=== PATIENT | male | born 1960 | race Caucasian/White ===

== ENCOUNTER 2019-06-10 12:58 | Emergency (ER) | payer OTHER ==
[~2019-06-10] VITALS: Ht 177.8 cm; Wt 68.0 kg
[2019-06-10] MEDS ORDERED: ATORVASTATIN CA10 MG ORAL (13:00)
[2019-06-10] MEDS ORDERED: Ketorolac 30mg Inj IV ONE (13:00)
[2019-06-10 13:05] VITALS: BP 106/65
--- NOTE | 2019-06-10 13:05 | NUR ---
ED Nurse Note: PT BROUGHT IN BY RA Cruz FROM PHYSICAL THERAPY DUE TO SYNCOPE EPISODE TODAY WITNESSED BY CLINIC STAFF. PT C/O LEFT ARM PAIN AND STATES HE MIGHT HAD LANDED ON IT WHEN HE LOC. NO APPARENT HEAD TRAUMA NOTED. AAO X4, FOLLOWS COMMANDS AND DENIES CP OR DIZZINESS. FRIEND AT THE BED SIDE.
--- NOTE | 2019-06-10 13:28 | Emergency Room Report ---
History of Present Illness General Chief Complaint: Syncope Source: Patient Present Illness HPI She presents post syncopal episode having procedure done on his left leg. Syncope in the past. This has happened exposure to blood products. The procedure made him feel dizzy. He was standing. He also lost his vision and caught his left arm on a pole when he was falling. He has pain in his left arm at this time. He woke up very soon after falling. Denies any head trauma. He tried to discourage paramedics from transporting him. Then they performed a blood glucose test and he became near syncopal a second time. EKG in the field was done without injury. Blood glucose was normal. The pain in his left arm is rated 5/10 and aching. No numbness. Patient has a history of low heart rate and low blood pressure. Otherwise he is healthy. No fevers, chills, sore throat, chest pain, palpitations, nausea, vomiting, diarrhea, dysuria, abdominal pain, shortness of breath, joint pain, rashes, depression, anxiety, headache. Allergies: Coded Allergies: PENICILLINS (Verified Allergy, Unknown, 06/10/19) Patient History Past Medical History: see triage record Social History: Denies: smoking, alcohol use, drug use Social History Narrative Reviewed Nursing Documentation: PMH: Agreed; PSxH: Agreed Nursing Documentation-PMH Past Medical History: No History, Except For Hx Cardiac Problems: No - high cholesterol Review of Systems All Other Systems: negative except mentioned in HPI Physical Exam Vital Signs Date Time Temp Pulse Resp B/P (MAP) Pulse Ox O2 Delivery O2 Flow Rate FiO2 06/10/19 12:58 98.1 60 18 107/70 (82) 97 Room Air Sp02 EP Interpretation: reviewed, normal General Appearance: well appearing, no apparent distress, GCS 15 Head: normocephalic, atraumatic Eyes: bilateral eye normal inspection, bilateral eye PERRL, bilateral eye EOMI ENT: moist mucus membranes Neck: supple Respiratory: lungs clear, normal breath sounds Cardiovascular #1: regular rate, rhythm Cardiovascular #2: 2+ radial (R), 2+ radial (L) - Good capillary fill Gastrointestinal: normal inspection, normal bowel sounds, non tender, no mass, non-distended Musculoskeletal: back normal, gait/station normal, normal range of motion, tender - Left antecubital area Neurologic: alert, oriented x3, corn picker III-XII nml as tested, motor strength/tone normal, DTRs symmetric, sensory intact, cerebellar normal, normal gait, speech normal Psychiatric: mood/affect normal Skin: warm/dry, abrasion - Left antecubital Medical Decision Making Diagnostic Impression: Primary Impression: Syncope Qualified Codes: R55 - Syncope and collapse Additional Impression: Contusion of left forearm Qualified Codes: S50.12XA - Contusion of left forearm, initial encounter ER Course The patient presents after a syncopal episode after experiencing a painful procedure on his left knee. Differential includes vasovagal syncope, arrhythmia , acute myocardial infarction, dehydration amongst others. Evaluation with EKG , chest x-ray and labs. CT the head is not indicated. Patient treated with IV hydration and analgesia for the injury to his left arm. Differential here is contusion, sprain however x-rays are indicated to exclude fracture. EKG without injury. Chest x-ray normal. Labs unremarkable. Left elbow film with out fracture. Patient improved with treatment. Discussed the need for follow-up with his own doctor. Also discussed measures to try and prevent syncope. No medical emergency at this time. Patient stable for outpatient observation and treatment. Laboratory Tests Test 06/10/19 13:40 White Blood Count 6.8 K/UL (4.8-10.8) Red Blood Count 5.04 M/UL (4.70-6.10) Hemoglobin 15.6 G/DL (14.2-18.0) Hematocrit 45.3 % (42.0-52.0) Mean Corpuscular Volume 90 FL (80-99) Mean Corpuscular Hemoglobin 31.0 PG (27.0-31.0) Mean Corpuscular Hemoglobin Concent 34.5 G/DL (32.0-36.0) Red Cell Distribution Width 11.4 % (11.6-14.8) L Platelet Count 178 K/UL (150-450) Mean Platelet Volume 8.2 FL (6.5-10.1) Neutrophils (%) (Auto) 67.8 % (45.0-75.0) Lymphocytes (%) (Auto) 20.2 % (20.0-45.0) Monocytes (%) (Auto) 9.0 % (1.0-10.0) Eosinophils (%) (Auto) 1.9 % (0.0-3.0) Basophils (%) (Auto) 1.2 % (0.0-2.0) Prothrombin Time 11.1 SEC (9.30-11.50) Prothrombin Time INR 1.0 (0.9-1.1) PTT 25 SEC (23-33) Sodium Level 141 MMOL/L (136-145) Potassium Level 3.7 MMOL/L (3.5-5.1) Chloride Level 103 MMOL/L (98-107) Carbon Dioxide Level 30 MMOL/L (21-32) Anion Gap 8 mmol/L (5-15) Blood Urea Nitrogen 25 mg/dL (7-18) H Creatinine 0.9 MG/DL (0.55-1.30) Estimate Glomerular Filtration Rate > 60 mL/min (>60) Glucose Level 102 MG/DL (74-106) Calcium Level 9.0 MG/DL (8.5-10.1) Total Bilirubin 0.5 MG/DL (0.2-1.0) Aspartate Amino Transferase (AST) 26 U/L (15-37) Alanine Aminotransferase (ALT) 29 U/L (12-78) Alkaline Phosphatase 35 U/L (46-116) L Total Creatine Kinase 116 U/L (26-308) Troponin I 0.000 ng/mL (0.000-0.056) Pro-B-Type Natriuretic Peptide 147 pg/mL (0-125) H Total Protein 7.6 G/DL (6.4-8.2) Albumin 4.0 G/DL (3.4-5.0) Globulin 3.6 g/dL Albumin/Globulin Ratio 1.1 (1.0-2.7) EKG Diagnostic Results Rate: bradycardiac Rhythm: NSR ST Segments: no acute changes Rhythm Strip Diag. Results EP Interpretation: yes Rhythm: no PVC's, no ectopy - Sinus bradycardia rate 53 first-degree AV block Chest X-Ray Diagnostic Results Chest X-Ray Diagnostic Results : Chest X-Ray Ordered: Yes Indication: Other EP Interpretation: Yes Interpretation: no consolidation, no effusion, no pneumothorax Impression: No acute disease Electronically Signed by: Electronically signed by Abdullahi Tamayo MD Other X-Ray Diagnostic Results Other X-Ray Diagnostic Results : X-Ray ordered: L forearm # of Views/Limited Vs Complete: 3 View Indication: Other EP Interpretation: Yes Interpretation: no dislocation, no soft tissue swelling, no fractures Impression: No acute disease Electronically Signed by: Electronically signed by Abdullahi Tamayo MD Last Vital Signs Date Time Temp Pulse Resp B/P (MAP) Pulse Ox O2 Delivery O2 Flow Rate FiO2 06/10/19 12:58 98.1 60 18 107/70 (82) 97 Room Air Status: improved Disposition: HOME, SELF-CARE Condition: Improved Scripts Ibuprofen* (MOTRIN*) 600 Mg Tablet 600 MG ORAL Q6H PRN for For Pain, #16 TAB 0 Refills Prov: Abdullahi Tamayo MD 06/10/19 Abdullahi Tamayo MD Jun 10, 2019 13:28
--- NOTE | 2019-06-10 13:45 | NUR ---
ED Nurse Note: COLLECTED BLOOD THEN SENT.
[2019-06-10 14:14] LABS: BASOPHILS % (AUTO) 1.2 % (0.0-2.0); EOSINOPHILS % (AUTO) 1.9 % (0.0-3.0); HEMATOCRIT 45.3 % (42.0-52.0); HEMOGLOBIN 15.6 G/DL (14.2-18.0); LYMPHOCYTES % (AUTO) 20.2 % (20.0-45.0); MEAN CORPUSCULAR VOLUME 90 FL (80-99); NEUTROPHILS % (AUTO) 67.8 % (45.0-75.0); PLATELET COUNT 178 K/UL (150-450); RED BLOOD COUNT 5.04 M/UL (4.70-6.10); RED CELL DISTRIBUTION WIDTH 11.4 % (11.6-14.8); WHITE BLOOD COUNT 6.8 K/UL (4.8-10.8)
[2019-06-10 14:25] LABS: ANION GAP 8 mmol/L (5-15); BLOOD UREA NITROGEN 25 mg/dL (7-18); CARBON DIOXIDE 30 MMOL/L (21-32); CHLORIDE 103 MMOL/L (98-107); CREATININE 0.9 MG/DL (0.55-1.30); POTASSIUM 3.7 MMOL/L (3.5-5.1); SODIUM 141 MMOL/L (136-145)
--- NOTE | 2019-06-10 14:35 | Diagnostic Imaging Report ---
Indication: Chest pain, trauma Technique: One view of the chest Comparison: none Findings: Lungs and pleural spaces are clear. Heart size is upper limits normal. Bones are intact. No pneumothorax Impression: No acute process
[2019-06-10 14:36] LABS: ALANINE AMINOTRANSFERASE 29 U/L (12-78); ALBUMIN/GLOBULIN RATIO 1.1 (1.0-2.7); ALKALINE PHOSPHATASE 35 U/L (46-116); ASPARTATE AMINO TRANSFERASE 26 U/L (15-37); BILIRUBIN,TOTAL 0.5 MG/DL (0.2-1.0); CREATINE KINASE 116 U/L (26-308)
--- NOTE | 2019-06-10 14:36 | Diagnostic Imaging Report ---
Indications: Recent fall on arm, pain Technique: Two views of the left forearm Comparison: None Findings: No acute fractures. No dislocations. The joint spaces are preserved Impression: Negative
[2019-06-10 15:00] VITALS: BP 115/72
[2019-06-10] MEDS ORDERED: IBUPROFEN600 MG ORAL (15:36)
[2019-06-10 16:30] VITALS: BP 125/73
--- NOTE | 2019-06-10 16:30 | NUR ---
ER DISCHARGE NOTE: Patient is cleared to be discharged per ERMD, pt is aox4, on room air, with stable vital signs. pt was given dc and prescription instructions, pt was able to verbalize understanding, pt id band and iv site removed without complications. pt is able to ambulate with steady gait. pt took all belongings and left with his friend.
--- NOTE | 2019-06-12 15:32 | Cardiology Report ---
APPROVED REPORT EKG Measurement Heart [id number] [place] [id number] Sinus bradycardia with 1st degree AV block Otherwise normal ECG
== END 2019-06-10 16:30 | disposition home or self-care (01) ==
LOC: EDBD 12:58 → EMR 13:46
DX: R55 Syncope and collapse (principal); S50.12XA Contusion of left forearm, initial encounter; W19.XXXA Unspecified fall, initial encounter; Y92.9 Unspecified place or not applicable; Z88.0 Allergy status to penicillin; R00.1 Bradycardia, unspecified; I44.0 Atrioventricular block, first degree
CPT/HCPCS: 36415; 71045; 73090; 80053; 82550; 83880; 84484; 85025; 85610; 85730; 93005; 96361; 96374; 99284; J1885; J7030